=== PATIENT | female | born 2000 | race Caucasian/White ===

== ENCOUNTER 2023-08-22 14:31 | Emergency (ER) | payer MEDICAID, OTHER ==
[~2023-08-22] VITALS: Ht 154.9 cm; Wt 61.2 kg
[2023-08-22] MEDS ORDERED: CYCL-837 PO (18:20)
[2023-08-22 20:17] VITALS: BP 123/73; PULSE 74; RESP 16; TEMP 99; O2SAT 98
== END 2023-08-22 20:18 | disposition home or self-care (01) ==
LOC: ER 14:31
DX: M43.12 Spondylolisthesis, cervical region (principal); M54.2 Cervicalgia; M25.562 Pain in left knee; M25.561 Pain in right knee; V49.9XXA Car occupant (driver) (passenger) injured in unspecified traffic accident, initial encounter; Y93.89 Activity, other specified; Y92.488 Other paved roadways as the place of occurrence of the external cause; Y99.8 Other external cause status
CPT/HCPCS: 72040